=== PATIENT | male | born 1950 | race African-American/Black ===

== ENCOUNTER → 2019-10-05 | Outpatient (CLI) | payer MEDICARE, OTHER | LOC: M.MRI 07:11 | DX: S83.241A Other tear of medial meniscus, current injury, right knee, initial encounter (principal); M17.11 Unilateral primary osteoarthritis, right knee; X58.XXXA Exposure to other specified factors, initial encounter; Y93.89 Activity, other specified; Y92.89 Other specified places as the place of occurrence of the external cause; Y99.8 Other external cause status ==

== ENCOUNTER 2019-11-14 07:30 | Inpatient (IN) | payer MEDICARE, OTHER ==
[2019-11-03 09:10] LABS: HEMATOCRIT 38.6 % (42.0-52.0); HEMOGLOBIN 13.2 gm/dL (14.0-18.0); MCHC 34.2 g/dL (28.0-37.0); MCV 93.7 fL (80.0-100.0); MPV 8.6 fl. (7.2-11.1); RBC 4.12 mil/uL (4.50-6.00); RDW-CV 13.9 % (10.5-14.5); WBC 5.8 thou/uL (4.0-11.0)
[2019-11-03 09:13] LABS: URINE BILIRUBIN NEGATIVE (Negative); URINE BLOOD TRACE (Negative); URINE CLARITY CLEAR; URINE COLOR YELLOW; URINE GLUCOSE-RANDOM NEGATIVE (Negative); URINE KETONES NEGATIVE (Negative); URINE LEUKOCYTES-REFLEX NEGATIVE (Negative); URINE NITRITE-REFLEX NEGATIVE (Negative); URINE PROTEIN 2+ (Negative); URINE UROBILINOGEN 0.2 E.U./dl (0.2-1.0)
[2019-11-03 09:31] LABS: ALBUMIN 4.1 g/dL (3.4-5.0); CALCIUM 9.7 mg/dL (8.5-10.1); CREATININE 1.2 mg/dL (0.6-1.3); POTASSIUM 3.4 mmol/L (3.5-5.1); TOTAL BILIRUBIN 1.1 mg/dL (<0.1-1.0)
[2019-11-03 09:39] LABS: BACTERIA-REFLEX 1-9 Few /HPF (None Seen); CASTS None Seen /LPF (None Seen); CRYSTALS None Seen /LPF (None Seen); MUCUS 4-6 Moderate strn/LPF (None Seen); SQUAMOUS 0-3 Few /LPF (0-3); URINE RBC 0-2 Rare /HPF (0-2); URINE WBC-REFLEX 0-5 Rare /HPF (0-5)
[~2019-11-14] VITALS: Ht 185.4 cm; Wt 106.6 kg
[~2019-11-14 07:30] MED LIST: ACCUPRIL40 MG PO; ASPIR 8181 M1 PO; HYDROCHLOROTHIA25 M2 PO; LIPITOR 20 MG T20 M1 PO; METFORMIN HCL500 M3 PO; METFORMIN HCL500 MG PO; MULTIVITAMINS1 EAC7 PO; NIFEDIPINE ER60 M1 PO; SPIRONOLACTONE25 M1 PO
[2019-11-22 10:45] VITALS: BP 135/76
[2019-11-22 15:18] VITALS: BP 149/77
--- NOTE | 2019-11-22 17:39 | NUR ---
PT REMAINED ALERT AND ORIENTED. PT UP TO BATHROOM. PAIN MEDS GIVEN ORDERED. FALL RISK PRECAUTIONS IN PLACE. HOURLY ROUNDING COMPLETED. WILL CONTINUE TO MONITOR.
[2019-11-22 20:15] VITALS: BP 137/79
[2019-11-23] VITALS: BP 119/71
[2019-11-23 04:00] VITALS: BP 146/92
[2019-11-23 05:16] LABS: HEMATOCRIT 30.4 % (42.0-52.0); HEMOGLOBIN 10.4 gm/dL (14.0-18.0)
--- NOTE | 2019-11-23 05:26 | NUR ---
A&O, VSS ON 2L. MEDS GIVEN ORDERED. PAIN WELL CONTROLLED WITH OXY IR. DRESSING TO RT KNEE C/D/I. HEMO VAC, POLAR CARE IN PLACE. PT TOLERATED CPM. HOURLY ROUNDINGS COMPLETED. WILL CONTINUE TO MONITOR.
[2019-11-23 07:35] VITALS: BP 121/65
--- NOTE | 2019-11-23 10:49 | OP ---
[facility] [address] [place] [address] OPERATIVE REPORT Name: NAOMI KIM Room: [address] IN M.R.#: [id number] Admission: 11/22/19 Attend Phys: Pj Alcantara Discharge: Date of : 46 Report #: [id number] THIS REPORT FOR: //name// CC: Payal Silviaelian Rob DATE OF SERVICE: 11/22/2019 PREOPERATIVE DIAGNOSIS: Right knee osteoarthritis. POSTOPERATIVE DIAGNOSIS: Right knee osteoarthritis. PROCEDURE: Right total knee arthroplasty. SURGEON: Pilo Mejia II, DO AIRPORT BAGGAGE SCREENER: SIMEON Max. ANESTHESIA: General endotracheal. ESTIMATED BLOOD LOSS: 50 mL. ANTIBIOTICS: Ancef preoperatively. DRAINS: Medium Hemovac. COMPLICATIONS: None. CONDITION: The patient is stable to recovery room. IMPLANTS: Listed in operative record and progress note. BRIEF HISTORY: The patient was seen in the preoperative area. Preoperative H and P was performed. Site was marked. Questions were answered. Risks and benefits were discussed with the patient in detail about surgery. The patient wished to proceed, assuming all risks. DESCRIPTION OF PROCEDURE: The patient was taken to the operative suite and placed supine on the OR table, given appropriate anesthesia. A well-padded tourniquet applied to the upper thigh, which was inflated to 300 mmHg after gravity exsanguination. The operative knee was sterilely prepped and draped. Surgery began by midline incision. This was carried down to the subcutaneous tissues. A medial parapatellar arthrotomy was performed and carried down to bone. The patella was then everted and excess soft tissue removed from around the femur. Femoral cutting block was then applied, checked with a drop angela for rotational alignment, pinned in appropriate position and appropriate cuts were [address] [address] OPERATIVE REPORT Name: NAOMI KIM Room: [address] IN [facility]#: [id number] Admission: 11/22/19 Attend Phys: Pj Alcantara Discharge: Date of : 46 Report #: [id number]. A 4-in-1 cutting block was then applied, checked for rotational alignment, pinned in appropriate position and appropriate cuts were made. Tibia was then exposed. Excess meniscus was removed. Retractor was placed on collateral ligaments. The tibial cutting block was applied, pinned in appropriate position, checked with a drop angela for rotational alignment and slope and appropriate cut was made. The tibial bone was removed. The tibial base plate was applied, checked with drop angela for rotational alignment in appropriate position and appropriate cuts were made. The femur was then applied and box cut was reamed. This was then trialed with appropriate spacer, which showed excellent fit and fill and excellent stability of knee through all range of motion. The patella was reamed in appropriate fashion and sized to appropriate size. Three peg holes were drilled and it was then trialed and showed excellent flexion, extension, excellent tracking of patella within the groove. The trials were then removed. The tibia was punched in appropriate fashion. Bone ends were cleansed with Pulsavac irrigation and cement was mixed and applied to final implants. These were then malleted into position and held the knee in extension and compressed to allow cement to cure. After it cured, excess was removed using a [place] and osteotome. Wound was then copiously irrigated and the final spacer was then malleted into position. The tourniquet was deflated. Hemostasis was obtained with electrocautery. Pain cocktail was injected. PRP gel was sprayed throughout internal aspects of the knee. Medium Hemovac drain was applied. Capsule was closed with #2 FiberWire and #1 Vicryl in thazre-dx-myhdi fashion. Skin was closed with 2-0 Vicryl and running 3-0 Monocryl. Dermabond and sterile dressing was applied. Genaro wrap and PolarCare applied. The patient transported to recovery room in stable condition. Counts were correct throughout the procedure. <ELECTRONICALLY SIGNED> By: Pilo Mejia II, DO 11/23/19 [id number] Mejia II, DO /nt
[2019-11-23] MEDS ORDERED: HYDROCODON-ACE1 EAC7 PO (11:32)
[2019-11-23] MEDS ORDERED: COLACE100 MG PO (11:33)
[2019-11-23] MEDS ORDERED: XARELTO10 MG PO (11:33)
[2019-11-23 11:35] VITALS: BP 121/65
--- NOTE | 2019-11-23 12:15 | NUR ---
PT.HAS BEEN CLEARED FOR DISCHARGE BY THERAPY AND MILAGROS. LEEANN CALLED IN PRESCRIPTION WRITTEN, TO HIS PHARMACY. WILL CALL BACK FOR COPAY. SPOKE WITH PT.AND . HE IS READY TO DISCHARGE BUT WILL WAIT FOR COPAY AMOUNT. HAS FWW IN ROOM FROM HOME. DISCUSSED CPM AND POLAR PACK. HE KNOWS HOW TO USE BOTH. ,DENISE, WILL BE WITH HIM AT HOME TO ASSIST. HE CHOSE [email or web address] AND SIGNED VENDOR CHOICE FORM. FAXED H&P,OP REPORT AND DISCHARGE ORDERS TO [email or web address] . THEY WILL CALL HIM TO SET UP APPTS. IS WANTING A PAIN PILL PRIOR TO DISCHARGE. CM INFORMED FABIANA SHARPE.
[2019-11-23 13:59] VITALS: BP 121/65
--- NOTE | 2019-11-23 14:01 | NUR ---
PT GIVEN DISCHARGE INFORMATION, CARE NOTES, AND PRESCRIPTIONS. NORCO FAXED OVER PER HOSPITALIST. IV REMOVED. PT BELONGINGS GATHERED. FALL RISK PRECAUTIONS IN PLACE. HOURLY ROUNDING COMPLETED. PT LEFT VIA WHEELCHAIR WITH NURSING STAFF TO HOME WITH HOME HEALTH.
--- NOTE | 2019-11-23 17:48 | NUR ---
POST-DISCHARGE NOTE-RECIEVED O.T. EVAL AND TX ORDERS. WILL DEFER TO P.T. AT AT THIS TIME. PLEASE ORDER FURTHER O.T. SERVICES IF NEEDED.
== END 2019-11-23 14:02 | disposition home health service (06) | DRG 470 ==
LOC: M.PRE 07:30 → M.ORTHSURG 11-22 08:54 → M.TBA 11-22 08:54 → M.PRE 11-22 11:00 → M.ORTHSURG 11-22 15:16
PROVIDERS: Orthopaedic Surgery; ADMIT Internal Medicine
PROC: 0SRC0J9 Replacement of Right Knee Joint with Synthetic Substitute, Cemented, Open Approach (ICD-10-PCS; principal; 2019-11-22)
DX: M17.11 Unilateral primary osteoarthritis, right knee (principal); I10 Essential (primary) hypertension; E78.00 Pure hypercholesterolemia, unspecified; F32.9 Major depressive disorder, single episode, unspecified; E11.9 Type 2 diabetes mellitus without complications; E78.5 Hyperlipidemia, unspecified; Z79.899 Other long term (current) drug therapy; Z79.82 Long term (current) use of aspirin; Z72.89 Other problems related to lifestyle; Z83.3 Family history of diabetes mellitus; Z82.49 Family history of ischemic heart disease and other diseases of the circulatory system